=== PATIENT | male | born 1990 | race Caucasian/White ===

== ENCOUNTER 2025-04-01 12:50 | Outpatient (CLI) | payer OTHER, SELFPAY | END 2025-04-01 12:51 | disposition home or self-care (01) | LOC: LKVREF 12:53 | PROVIDERS: PCP Family Medicine; Visit Provider Family Medicine | DX: Z00.01 Encounter for general adult medical examination with abnormal findings (principal); F41.8 Other specified anxiety disorders; Z13.21 Encounter for screening for nutritional disorder | CPT/HCPCS: 82306; 84443 ==